=== PATIENT | female | born 1965 | race Caucasian/White ===

== ENCOUNTER → 2019-09-18 10:06 | Outpatient (CLI) | payer OTHER, SELFPAY ==
--- NOTE | 2019-09-18 | DI.MG.S_ITS ---
BILATERAL DIGITAL SCREENING MAMMOGRAM 3D/2D WITH CAD: 09/18/2019 CLINICAL: Routine screening. Comparison is made to exams dated: 03/03/2006 mammogram and 11/05/2011 mammogram - [facility]. The tissue of both breasts is heterogeneously dense. This may lower the sensitivity of mammography. Current study was also evaluated with a Computer Aided Detection (CAD) system. There are benign calcifications in both breasts. No significant masses, calcifications, or other findings are seen in either breast. There has been no significant interval change. IMPRESSION: There is no mammographic evidence of malignancy. A 1 year screening mammogram is recommended. This exam was interpreted at Station ID: [id number]. NOTE: For mammograms, a report in lay terms will be sent to the patient. Approximately 15% of breast malignancies will not be visualized mammographically. In the management of a palpable breast mass, a negative mammogram must not discourage biopsy of a clinically suspicious lesion. Electronically Signed By: Jimbo [email or web address]:09/20/2019 08:22:08 letter sent: Normal Exam ACR BI-RADS Category 2: Benign Finding(s) 3342F
[2019-09-18 11:53] LABS: BUN Creatinine Ratio 32.9 (6-22); Blood Urea Nitrogen 23 mg/dL (7-17); Calcium 9.7 mg/dL (8.4-10.2); Carbon Dioxide 25 mmol/L (22-32); Chloride 107 mmol/L (98-107); Cholesterol 229 mg/dL (140-199); Estimated Glomerular Filt Rate > 60.0 mL/min (>60); Glucose 93 mg/dL (70-100); HDL Cholesterol 46 mg/dL (40-60); HEMOLYSIS < 15 (0-50); LDL Cholesterol Calculated 148 mg/dL (<100); Potassium 4.4 mmol/L (3.4-5.1); Sodium 143 mmol/L (137-145); Triglycerides 176 mg/dL (35-150)
== END ==
PROVIDERS: Referring Provider Internal Medicine; Visit Provider Internal Medicine
DX: Z12.31 Encounter for screening mammogram for malignant neoplasm of breast (principal); Z00.00 Encounter for general adult medical examination without abnormal findings
CPT/HCPCS: 36415; 77063; 77067; 80048; 80061